=== PATIENT | female | born 1960 | race Caucasian/White ===

== ENCOUNTER 2019-09-17 10:34 | Outpatient (CLI) | payer OTHER, SELFPAY ==
--- NOTE | ~2019-09-17 | MM_ITS ---
EXAMINATION: MM screening jose BI w shayy HISTORY: Screening mammogram TECHNIQUE: Craniocaudal and mediolateral oblique 3-D tomosynthesis images were obtained and synthetic 2-D images were generated. CAD analysis was submitted and interpreted. COMPARISON: No prior mammogram is available for comparison at this institution. BREAST PARENCHYMAL COMPOSITION: There are scattered areas of fibroglandular density. FINDINGS: There are scattered bilateral benign calcifications. There is architectural distortion anteriorly in the mid central to lateral left breast; history of pr ior benign biopsy at this site in August 2015. There is no evidence of suspicious mass, calcification, o r architectural distortion to suggest malignancy in either breast. There has been no suspicious inter martin change. IMPRESSION: 1. Postoperative scarring of right breast, stable. No mammographic evidence of malignancy. 2. Recommend routine screening mammography in one year. BI-RADS Category 2: Benign finding(s). Reviewed, dictated and finalized at location A.
== END 2019-09-17 10:35 | disposition home or self-care (01) ==
LOC: ANHIMG 10:37
PROVIDERS: PCP Family Medicine; Visit Provider Obstetrics & Gynecology
DX: Z12.31 Encounter for screening mammogram for malignant neoplasm of breast (principal)
CPT/HCPCS: 77063; 77067

== ENCOUNTER 2021-02-13 00:45 | Day surgery (SDC) | payer OTHER, SELFPAY ==
[2021-01-30 15:39] VITALS: BMI 29.2
[2021-02-13 08:47] VITALS: BP 128/92; PULSE 90; RESP 16; TEMP 36.6; O2SAT 100; BMI 28.8
[2021-02-13] MEDS: LACTATED RINGERS 1,000 ML 150 ML IV CONT (09:03)
--- NOTE | 2021-02-13 09:09 | P.PNAN_ITS ---
Anes - Initial Pre Proc Eval Procedure: Operation Date: 02/13/21 09:30 Proposed Procedures p Screening Colonoscopy - Immanuel Mota MD Date/Time: 02/13/21 09:09 Surgeon: Immanuel Mota MD Pre Op Diagnosis: family hx of colon ca Patient Data Age: 60 Gender: F Height: 1.6 m Weight: 73.8 kg Last Vital Signs Temp 36.6 C 02/13/21 08:47 Pulse 90 02/13/21 08:47 Resp 16 02/13/21 08:47 BP 128/92 H 02/13/21 08:47 Pulse Ox 100 02/13/21 08:47 Allergies Allergy/AdvReac Type Severity Reaction Status Date / Time Penicillins Allergy Severe Unknown Verified 02/13/21 08:45 Home Medications Medication Instructions Recorded Confirmed Type Lactobacills gasseri-Bifidobac 1 cap PO DAILY 04/28/20 02/13/21 History bifidum,longum 1.5 billion cell capsule latanoprost 0.005 % eye drops 1 drp OPHTHALMIC (EYE) DAILY 04/28/20 02/13/21 History triamterene 37.5 1 cap PO DAILY #90 cap 04/28/20 02/13/21 Rx mg-hydrochlorothiazide 25 mg capsule vitamins A,C,G-xasq-awlmqc 14,320 1 cap PO BID 04/28/20 02/13/21 History unit-226 mg-200 unit capsule metoprolol succinate 50 mg 50 mg PO DAILY #90 tablet 04/29/20 02/13/21 Rx tablet,extended release 24 hr atorvastatin 10 mg PO HS 01/30/21 02/13/21 History Patient hx anesthesia problems: none Family hx anesthesia problems: none Results Review: All pre-operative results and documents have been reviewed as part of the pre-operative evaluation. [facility] Past Medical History Medical History H/O Mohs micrographic surgery for skin cancer High cholesterol HLD (hyperlipidemia) Hypertension Skin cancer Family History Family History Father Heart disease Malignant neoplasm of prostate Mother Hypertension Breast cancer Skin cancer Sibling Carcinoma of colon Diabetes mellitus Social History Social History Smoking packs per day: 0.15 Smoking cigarettes per day: 3.0 Years smoked: 2 Smoking pack-years: 0.30 Smoking status: Former smoker Tobacco type: cigarettes Smoking end date: 04/15/90 Alcohol intake: current Alcohol use details: seldom; socially Substance use: never Substance use type: does not use Living arrangements: with family Gender identity (if verbalized by the patient): Female Spiritual care concerns: No Anes - Eval Final PreProcedure Day of Procedure 02/13/21 09:09 Patient weight: overweight Heart: regular rate and rhythm Lungs: clear to auscultation Airway: Mallampati scale class III Neurological: alert and oriented Last oral intake: >/= 8 hours ASA classification: III Emergent: no Anesthetic plan: proceed Anesthesia type and monitoring: general GIVS and standard monitoring Results Review: All pre-operative results and documents have been reviewed as part of the pre-operative evaluation. Informed Consent: The patient's anesthetic plan and its attendant risks and benefits were discussed with the patient/family/POA. Questions were solicited and answers provided to the satisfaction of the patient/family/POA
--- NOTE | 2021-02-13 09:11 | WPDGICN ---
Assessment and Plan Assessment and plan (1) Family hx of colon cancer: Code(s): Z80.0 - Family history of malignant neoplasm of digestive organs Status: Acute Assessment and Plan: Patient's brother has had colon cancer. Plan therefore is for surveillance colonoscopy in 5 year intervals with this patient. GI Consult Note Consult date/time: 02/13/21 09:11 HPI: Leslie Celaya is a 60 year old female Presents for screening colonoscopy. Family history is significant that her brother had colon cancer. Her last colonoscopy was [address] Immanuel Fuentes. patient states that in the past she was identified as having collagenous colitis . She states her symptoms are well controlled on probiotics. She does report irregular stools otherwise. patient denies any blood in her stools. Her weight is stable. Family history is as stated. Review of Systems Review of Systems: All systems reviewed & are unremarkable except as noted in HPI and below PMFSH Past Medical History Medical History H/O Mohs micrographic surgery for skin cancer High cholesterol HLD (hyperlipidemia) Hypertension Skin cancer Family History Family History Father Heart disease Malignant neoplasm of prostate Mother Hypertension Breast cancer Skin cancer Sibling Carcinoma of colon Diabetes mellitus Social History Social History Smoking packs per day: 0.15 Smoking cigarettes per day: 3.0 Years smoked: 2 Smoking pack-years: 0.30 Smoking status: Former smoker Tobacco type: cigarettes Smoking end date: 04/15/90 Alcohol intake: current Alcohol use details: seldom; socially Substance use: never Substance use type: does not use Living arrangements: with family Gender identity (if verbalized by the patient): Female Spiritual care concerns: No Meds Home Medications and Allergies Home Medications Medication Instructions Recorded Confirmed Type Lactobacills gasseri-Bifidobac 1 cap PO DAILY 04/28/20 02/13/21 History bifidum,longum 1.5 billion cell capsule latanoprost 0.005 % eye drops 1 drp OPHTHALMIC (EYE) DAILY 04/28/20 02/13/21 History triamterene 37.5 1 cap PO DAILY #90 cap 04/28/20 02/13/21 Rx mg-hydrochlorothiazide 25 mg capsule vitamins A,C,Q-tsyq-mmyzxk 14,320 1 cap PO BID 04/28/20 02/13/21 History unit-226 mg-200 unit capsule metoprolol succinate 50 mg 50 mg PO DAILY #90 tablet 04/29/20 02/13/21 Rx tablet,extended release 24 hr atorvastatin 10 mg PO HS 01/30/21 02/13/21 History Allergies Allergy/AdvReac Type Severity Reaction Status Date / Time Penicillins Allergy Severe Unknown Verified 02/13/21 08:45 Vital Signs Vital Signs - 24 hr 02/13/21 08:47 Temperature 97.9 F Pulse Rate 90 Respiratory Rate 16 Blood Pressure 128/92 H Pulse Oximetry 100 Exam Narrative: Physical exam reveals patient be alert. Vital signs stable. HEENT exam is unremarkable. Patient is anicteric. Lungs are clear to auscultation and percussion. Heart is without murmur or extra sounds. Abdominal exam bowel sounds are present soft nontender with no organomegaly. Digital external rectal exam is normal.
[2021-02-13 09:39] VITALS: BP 78/37; PULSE 74; RESP 16; O2SAT 99
[2021-02-13 09:49] VITALS: BP 74/43; PULSE 74; RESP 16; O2SAT 99
[2021-02-13 09:59] VITALS: BP 76/37; PULSE 75; RESP 16; O2SAT 100
== END 2021-02-13 10:01 | disposition home or self-care (01) ==
PROVIDERS: PCP Family Medicine; Visit Provider Internal Medicine Gastroenterology
PROC: 0DJD8ZZ Inspection of Lower Intestinal Tract, Via Natural or Artificial Opening Endoscopic (ICD-10-PCS; CPT 45378; principal; 2021-02-13 09:30)
DX: Z12.11 Encounter for screening for malignant neoplasm of colon (principal); Z80.0 Family history of malignant neoplasm of digestive organs; K64.8 Other hemorrhoids; E78.00 Pure hypercholesterolemia, unspecified; I10 Essential (primary) hypertension; Z87.891 Personal history of nicotine dependence; E78.5 Hyperlipidemia, unspecified
CPT/HCPCS: 45378; J2704; J7120

== ENCOUNTER → 2021-11-29 13:26 | Outpatient (CLI) | payer OTHER, SELFPAY ==
--- NOTE | ~2021-11-29 | MM_ITS ---
EXAMINATION: MM screening jose BI w shayy HISTORY: Screening mammogram TECHNIQUE: Craniocaudal and mediolateral oblique 3-D tomosynthesis images were obtained and synthetic 2-D images were generated. CAD analysis was submitted and interpreted. COMPARISON: 09/2019 bilateral screening mammogram 02/04/2017 and 08/02/2016 diagnostic right mammogram and limited right breast ultrasound examination 12/12/2015 diagnostic right mammogram and limited right breast ultrasound 04/05/2014 bilateral screening mammogram BREAST PARENCHYMAL COMPOSITION: There are scattered areas of fibroglandular density. FINDINGS: Stable architectural distortion secondary to prior right lumpectomy for benign papilloma ac cording to clinical history. Scattered bilateral benign calcifications. There is no evidence of suspicious mass, calcification, or architectural distortion to suggest malignancy in either breast. There has been no suspicious interv al change. IMPRESSION: 1. Stable postoperative scarring of right breast. Benign calcifications. No mammographic evidence of malignancy 2. Recommend routine screening mammography in one year. BI-RADS Category 2: Benign finding(s).. Reviewed, dictated and finalized at location A. IMPRESSION: 1. Stable postoperative scarring of right breast. Benign calcifications. No jose mographic evidence of malignancy 2. Recommend routine screening mammography in one year. BI-RADS Category 2: Benign finding(s)..
== END ==
PROVIDERS: PCP Family Medicine; Visit Provider Family Medicine
DX: Z12.31 Encounter for screening mammogram for malignant neoplasm of breast (principal)
CPT/HCPCS: 77063; 77067

== ENCOUNTER 2022-03-24 18:33 | Emergency (ER) | payer OTHER, SELFPAY ==
[2022-03-24 18:50] VITALS: BP 139/89; PULSE 125; RESP 18; TEMP 38.9; O2SAT 100
--- NOTE | 2022-03-24 19:09 | ED.URI ---
HPI - URI/Sore Throat General Chief Complaint: Upper Respiratory Infection Stated Complaint: cough,rash Time Seen by Provider: 03/24/22 19:09 Source: patient, RN notes reviewed and old records reviewed Mode of arrival: ambulatory Limitations: no limitations History of Present Illness HPI Narrative: 61-year-old female presents to the [facility] complaints of cough and a rash. Patient states she has been sick pretty much the month of February. since this afternoon developed a fever and worsening cough and feeling worse. States also for the last 3 days has developed a rash on the right chest area. Wraps around the ribcage just on the right side patient denies any pain. Related Data Home Medications Medication Instructions Recorded Confirmed Lactobacills gasseri-Bifidobac 1 cap PO DAILY 04/28/20 10/27/21 bifidum,longum 1.5 billion cell capsule ([employer] latanoprost 0.005 % eye drops 1 drp ophthalmic (eye) DAILY 04/28/20 10/27/21 vitamins A,C,W-ruye-dsyvkx 14,320 1 cap PO BID 04/28/20 10/27/21 unit-226 mg-200 unit capsule ([employer]) Allergies Allergy/AdvReac Type Severity Reaction Status Date / Time Penicillins Allergy Severe Unknown Verified 10/27/21 08:56 Review of Systems Review of Systems: All systems reviewed & are unremarkable except as noted in HPI and below Constitutional: Constitutional: Reports no additional constitutional complaints Eyes: Eyes: Reports no additional eye complaints ENT: Reports as per HPI, Reports nasal congestion and Reports sore throat Cardiovascular: Cardiovascular: Reports no additional cardiovascular complaints, Denies chest pain and Denies dyspnea Respiratory: Respiratory: Reports as per HPI, Reports chest congestion, Reports cough and Denies dyspnea Gastrointestinal: Gastrointestinal: Reports no additional gastrointestinal complaints, Denies abdominal pain, Denies nausea and Denies vomiting Musculoskeletal: Musculoskeletal: Reports no additional musculoskeletal complaints Integumentary/Breasts: Skin/Breast: Reports as per HPI and Reports rash Neurologic: Reports system reviewed and no additional complaints, except as documented Psychiatric: Psychiatric: Reports no additional psychiatric complaints Allergic/Immunologic: Allergic/Immunologic: Reports no additional allergic/immunologic complaints PMFSH Past Medical History Medical History H/O Mohs micrographic surgery for skin cancer High cholesterol HLD (hyperlipidemia) Hypertension Skin cancer Family History Family History Father Heart disease Malignant neoplasm of prostate Mother Hypertension Breast cancer Skin cancer Sibling Carcinoma of colon Diabetes mellitus Social History Social History Smoking packs per day: 0.15 Smoking cigarettes per day: 3.0 Years smoked: 2 Smoking pack-years: 0.30 Smoking status: Never smoker Tobacco type: cigarettes Smoking end date: 04/15/90 Alcohol intake: current Alcohol use details: seldom; socially Substance use: never Substance use type: does not use Gender identity (if verbalized by the patient): Female Spiritual care concerns: No Comments At the time of my signature, I reviewed and agree with the nursing past medical, surgical, social, and family history. There is no relevant family history pertinent to the patient complaint. Exam Const: General: cooperative, healthy appearing, comfortable, no acute distress, well developed, alert and well nourished Nutritional Appearance: well nourished Orientation/consciousness: patient oriented x3 Limitations: no limitations HENMT: Head: normal to inspection Ears: hearing grossly normal bilaterally and external ears normal Face/Nose/Sinus: Normal external nose present, Abnormal mucous membranes an
== END 2022-03-24 19:33 | disposition home or self-care (01) ==
PROVIDERS: Emergency Provider Nurse Practitioner; PCP Family Medicine
DX: B02.9 Zoster without complications (principal); J32.9 Chronic sinusitis, unspecified; J40 Bronchitis, not specified as acute or chronic; Z87.891 Personal history of nicotine dependence; E78.00 Pure hypercholesterolemia, unspecified; I10 Essential (primary) hypertension; Z85.828 Personal history of other malignant neoplasm of skin
CPT/HCPCS: 87804; 99213; G0463

== ENCOUNTER 2023-10-18 11:17 | Outpatient (CLI) | payer OTHER, SELFPAY ==
--- NOTE | ~2023-10-18 | MM_ITS ---
EXAMINATION: MM screening jose BI w shayy HISTORY: Screening mammogram, family history of breast cancer in her mother. TECHNIQUE: Craniocaudal and mediolateral oblique 3-D tomosynthesis images were obtained and synthetic 2-D images were generated. CAD analysis was submitted and interpreted. COMPARISON: 11/29/2021, 09/17/2019, 02/04/2017 BREAST PARENCHYMAL COMPOSITION:Not Dense. There are scattered areas of fibroglandular density. FINDINGS: No suspicious mass, calcification, or architectural distortion are identified in either taina ast to suggest malignancy. There has been no suspicious interval change. IMPRESSION: No mammographic evidence of malignancy. Recommend routine screening mammography in one year. BI-RADS Category 1: Negative Reviewed, dictated and finalized at location .
== END 2023-10-18 11:18 ==
PROVIDERS: PCP Family Medicine; Visit Provider Family Medicine
DX: Z12.31 Encounter for screening mammogram for malignant neoplasm of breast (principal)
CPT/HCPCS: 77063; 77067

== ENCOUNTER 2024-11-05 07:40 | Outpatient (CLI) | payer OTHER, SELFPAY ==
--- NOTE | ~2024-11-05 | DEXA_ITS ---
Bone Density Report Name: JESICA MERCADO Age: 64 Sex: Female Ethnicity: White Date of : 1960 Indication: postmenopausal; screening for osteoporosis; height loss; Referring Provider: ILIR RAZA Study: Bone densitometry was performed. Exam Date: November 05, 2024 Accession number: [id number] Bone Density: Region BMD T-score Z-score Classification AP Spine(L1-L4) 0.896 -1.4 0.2 Osteopenia Femoral Neck (Left) 0.619 -2.1 -0.7 Osteopenia Total Hip (Left) 0.660 -2.3 -1.2 Osteopenia Femoral Neck (Right) 0.610 -2.2 -0.8 Osteopenia Total Hip (Right) 0.673 -2.2 -1.1 Osteopenia Total Hip Mean 0.667 -2.3 -1.2 Osteopenia World Health Organization criteria for BMD impression classify patients as: Normal (T-score at or above -1.0), Osteopenia (T-score between -1.0 and -2.5), or Osteoporosis (T-score at or below -2.5). 10-year Fracture Risk(1): Major Osteoporotic Fracture 10% Hip Fracture 1.5% Reported Risk Factors: [place] (), Neck BMD=0.610, BMI=29.2 (1) FRAX(R) Version 3.08. Fracture probability calculated for an untreated patient. Fracture probability may be lower if the patient has received treatment. Clinical Information Provided by Patient: Has used the following medications: Vitamin D Patient maximum height was 63 Menopause Age: 49 No regular weight bearing exercise Does not regularly consume dairy products Drinks caffeinated beverages Onset of menses at age 14 Number of children 1 Impression: The patient has low bone mass, based on the Left Total Hip T-score. The patient has an estimated ten-year risk of hip fracture of 1.5% and an estimated ten-year risk of major fracture of 10%, based on the WHO FRAX algorithm. Discussion: BONE DENSITY IS LOW AT ONE OR MORE SKELETAL SITES. This patient's lowest T-score is low at one or more skeletal sites. It meets the World Health Organization's (WHO) criteria for ?low bone mass? (T-score between -1.0 and -2.5). The patient's 10-year risk of fracture as calculated by FRAX is less than the threshold where pharmacological therapy is recommended by the National Osteoporosis Foundation (NOF). However, all treatment decisions require clinical judgment and consideration of individual patient factors, including patient preferences, comorbidities, previous drug use, risk factors not captured in the FRAX model (e.g., frailty, falls, vitamin D deficiency, increased bone turnover, interval significant decline in bone density) and possible under or overestimation of fracture risk by FRAX. The patient should follow a healthful lifestyle (good nutrition with adequate calcium and vitamin D, and appropriate weight-bearing exercise). Follow-Up: Consider repeating this study in 2 to 3 years to reassess this patient's status, or sooner if there is some new clinical indication. Reported by: DREW on 11/05/2024 8:10:00 AM. Reviewed, dictated and finalized at location A.
== END 2024-11-05 07:41 | disposition home or self-care (01) ==
LOC: MICIMG 07:41
PROVIDERS: PCP Family Medicine; Visit Provider Family Medicine
DX: M85.89 Other specified disorders of bone density and structure, multiple sites (principal); Z78.0 Asymptomatic menopausal state
CPT/HCPCS: 77080

== ENCOUNTER 2024-11-12 21:47 | Emergency (ER) | payer OTHER, SELFPAY ==
--- NOTE | ~2024-11-12 | XR_ITS ---
EXAMINATION: XR chest 1V portable 11/12/2024 22:17 INDICATION: Possible CVA PROCEDURE: AP portable chest COMPARISON: No prior studies for comparison. FINDINGS: The lungs are clear. The cardiomediastinal silhouette is within normal limits. There are no pleural effusions. There is no pneumothorax suspected. IMPRESSION: 1: NO ACUTE CARDIOPULMONARY DISEASE. Reviewed, dictated and finalized at location B.
--- NOTE | ~2024-11-12 | CT_ITS ---
EXAMINATION: CT brain wo con DATE: 11/12/2024 22:01 INDICATION: Vision changes TECHNIQUE: Computed tomography (CT) of the head was performed without intravenous contrast. The dose- length product was 681.00 mGy-cm. Automated exposure control and iterative reconstruction technique w ere employed. COMPARISON: None FINDINGS: Brain parenchymal volume is normal for age. There is mucosal thickening of the right maxill [place] and ethmoid sinuses. No ventriculomegaly or midline shift. Basilar cisterns are patent. No acute hemorrhage, infarction, mass or mass effect. IMPRESSION: 1. No acute intracranial abnormality. Reviewed, dictated and finalized at location B.
[2024-11-12 22:05] VITALS: BP 156/93; PULSE 82; PULSE 83; RESP 12; RESP 16; TEMP 36.8; O2SAT 100; O2SAT 99
[2024-11-12 22:05] LABS: Hematocrit 39.7 % (37.0-47.0); Hemoglobin 13.6 g/dL (12.0-15.0); Immature Granulocyte Percent A 0.1 % (0-0.5); Lymphocytes Absolute Auto 4.02 K/mm3 (0.9-3.2); Mean Corpuscular HGB Conc 34.3 g/dl (32-36); Mean Corpuscular Hemoglobin 31.3 pg (26-34); Mean Corpuscular Volume 91.3 fl (80-100); Nucleated Red Blood Cells Absolute Auto 0.000 K/mm3 (0.0-0.012); Nucleated Red Blood Cells Perc 0.0 % (0.0-0.2); Platelet Count Result 250 k/mm3 (150-375); Red Blood Count 4.35 M/mm3 (4.2-5.4); White Blood Count 8.5 K/mm3 (4.5-10.0)
[2024-11-12 22:09] VITALS: PULSE 78
--- OUTSIDE RECORDS SUMMARY | 2024-11-12 22:09 | XMS_ITS | Encounter Summary ---
Author Organization [facility] Address [address] [place] [address] Care Team Providers Care Cell Tuber Hand Name Role Phone Guerrero Canchola MD Primary Care Provider Encounter Details Date Type Department Care Team (Late st Contact Info) Description 04/20/2022 Lab Requisition [facility] [address] [place] [id number] Ruben Ramirez MD [address] [place] [address] Social History Tobacco Use Types Packs/Day Years Used Date Smoking Tobacco: Former Smokeless Tobacco: Never Alcohol Use Standard Drinks/Week Comments Yes 0 (1 standard drink = 0.6 oz pur e alcohol) Comments Unknown Sex and Gender Information Value Date Recorded Sex Assigned at Not on file 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 Gender Identity Not on file Sexual Orientation Not on file documented as of this encounter Plan of Treatment Not on file documented as of this encounter Procedures Procedure Name Priority Date/Time Associated Diagnosis Comments DERMATOPATHOLOGY Routine 04/18/2022 12:0 0 AM COP[employer] AND PRINT ASSOCIATE documented in this encounter Results * DERMATOPATHOLOGY (04/18/2022 12:00 AM COPY AND PRINT ASSOCIATE) Case Report Dermatopathology Report Case: [id number] Authorizing Provider: Ruben Ramirez MD Collected: 04/18/2022 12:00 AM Ordering Location: [facility] Received: 04/20/2022 06:42 AM Pathologist: Tiffany Seo MD Specimen: Skin, vertex scalp 3 5:21 PM [facility] Final Diagnosis Specimen A. 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 The specimen consists of a shave biopsy measuring 7x5x1 mm. Jar 0. 5:21 PM [facility] Microscopic Description Specimen A. SKIN, vertex scalp: The epidermis shows parakeratosis, full thickness disorderly maturation of keratinocytes, mitoses at different levels, and dyskeratotic cells. 3 5:21 PM [facility] Disclaimer An external and internal positive and negative controls are appropriate for the histochemical, immunohistochemical and immunofluorescence stain(s) in this case (if any), except where stated explicitly. The performance characteristics of the stain(s) cited in this report were developed and its performance characteristic determined by the Dermatopathology Laboratory at [facility], directed by Dr. Luz Man. These tests need not be, and therefore are not, approved by the [place] Food and Drug Administration. The tests are used for clinical purposes. Billing Codes Specimen Charges Stain Charges 93887 1 3 5:21 PM [facility] Embedded Images 3 5:21 PM [facility]OLOG[facility] Pathology/Cytolog y TISSUE SPECIMEN FROM SKIN / Unknown 04/18/2022 04/20/2022 6:42 AM [facility] Ruben Ramirez MD LAB - PATHOLOGY/CYTOLOGY ORD ERABLES Final Result DERMATOPATHOLOGY LABORATORY [facility] - Department of Dermatology [address] [phone] documented in this encounter Visit Diagnoses Not on filedocumented in this encounter Care Teams Cell Tuber Hand Relationship Specialty Start Date End Date Guerrero Canchola MD [address] [place] [id number] PCP - General 08/21/12 documented as of this encounter
--- OUTSIDE RECORDS SUMMARY | 2024-11-12 22:10 | XMS_ITS | Clinical Summary ---
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 Gender Identity Not on file Sexual Orientation Not on file Last Filed Vital Signs Vital Sign Reading Time Taken Comments Blood Pressure 102/72 08/24/2015 9:57 AM CDT Pulse 64 08/24/2015 9:57 AM CDT Temperature 36.7 C (98 F) 08/24/2015 9:57 AM CDT Respiratory Rate - - Oxygen Saturation 99% 08/24/2015 9:57 AM CDT Inhaled Oxygen Concentration - - Weight 84.7 kg (186 lb 12.8 oz) 08/24/2015 9:57 AM CDT Height 158.8 cm (5' 2.5) 08/24/2015 9:57 AM CDT Body Mass Index 33.62 08/24/2015 9:57 AM CDT Plan of Treatment Health Maintenance Due Date Last Done Comments Breast Cancer Screening-Mammogram 1960 Cervical Cancer Screening 1960 Colon Cancer Screening-Colonoscopy 1960 Depression Screening 1960 Hepatitis C Screening 1960 DTaP/Tdap/Td Vaccine (1 - Tdap) 1973 Hepatitis B Screening 1980 Regular Well Visit/Exam 18-64 1980 Zoster Vaccine (1 of 2) 2012 Covid-19 Vaccine (4 - season) 2023 03/23/2021, 06/25/2020, 05/28/2020 Influenza Vaccine (#1) 2024 , 02/15/2020, 05/06/2018, Additional history exists Pneumococcal vaccine <65 Aged Out No longer eligible based on patient's age to complete this topic Insurance [employer] Care Teams Fourth Mate Relationship Specialty Start Date End Date Alma Villarreal MD PCP - General Family Medicine 05/23/21
--- OUTSIDE RECORDS SUMMARY | 2024-11-12 22:10 | XMS_ITS | Clinical Summary ---
Author Organization [facility] Address [address] [place] [address] Care Team Providers Care Sales Account Representative Name Role Phone Guerrero Canchola MD Primary Care Provider [phone] Source Comments [facility],non-owned Affiliates and Associated Physician Practices is amultiple site organization consisting of ambulatory clinics and hospital sitesin [place], [place], [place] and [place]. This disclosure is being madepursuant to the Care Everywhere program and may not contain all information available regarding this patient. Last updated 18.[facility] [place] Allergies Active Allergy Reactions Criticality Noted Date Comments Penicillin G Rash Medium 09/09/2013 Family History Medical History Relation Name Comments Diabetes Brother Heart Failure Father CABG Cancer Mother skin Diabetes Mother Hypertension Mother Relation Name Status Comments Brother Father Mother Social History Tobacco Use Types Packs/Day Years Used Date Smoking Tobacco: Former Smokeless Tobacco: Never Alcohol Use Standard Drinks/Week Comments Yes 0 (1 standard drink = 0.6 oz pur e alcohol) Comments Unknown Sex and Gender Information Value Date Recorded Sex Assigned at Not on file Legal 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 Gender Identity Not on file Sexual Orientation Not on file Last Filed Vital Signs Vital Sign Reading Time Taken Comments Blood Pressure 142/78 01/13/2014 9:12 AM CDT Pulse 78 01/13/2014 7:24 AM CDT Temperature - - Respiratory Rate - - Oxygen Saturation 96% 12/02/2013 7:25 AM CDT Inhaled Oxygen Concentration - - Weight 85.3 kg (188 lb) 01/13/2014 7:24 AM CDT Height 160 cm (5' 3) 01/13/2014 7:24 AM CDT Body Mass Index 33.3 01/13/2014 7:24 AM CDT Plan of Treatment Health Maintenance Due Date Last Done Comments COLOGUARD (AGES 45-75) - COL ON CA SCREENING 1962 COLON MONITORING 1962 COLONOSCOPY - COLON CA SCREENING 1962 CT COLONOGRAPHY - COLON CA SCREENING 1962 Colorectal Cancer Screening 1962 FIT - COLON CA SCREENING 1962 FLEX SIG - COLON CA SCREENING 1962 LIPID TESTING 1962 MAMMOGRAM 1962 HIV SCREENING 1977 HEPATITIS C SCREENING 08/03/1980 DTAP/TDAP/TD VACCINES (1 - Tdap) 1981 PAP SMEAR 08/09/1983 PNEUMOCOCCAL VACCINE 50+ (1 of 1 - PCV) 2012 ZOSTER VACCINE (1 of 2) 2012 COVID-19 VACCINE (1 - 2023-2 5 season) 2023 DEPRESSION SCREENING 04/15/2024 INFLUENZA VACCINE (#1) 2024 Respiratory Syncytial Virus (RSV) Vaccine Pt: or over 60 yrs (1 - 1-dose 75+ series) 2037 HEPATITIS B VACCINE Aged Out No longe r eligible based on patient's age to complete this topic HIB VACCINE Aged Out No longer eligi ble based on patient's age to complete this topic HPV VACCINE Aged Out No longer eligi ble based on patient's age to complete this topic MENINGOCOCCAL (Group B) VACC INE SHARED DECISION-MAKING Aged Out No longer eligibl e based on patient's age to complete this topic MENINGOCOCCAL GROUPS A/C/Y/W VACCINE Aged Out No longer eligible b ased on patient's age to complete this topic Insurance [facility] Care Teams Sales Account Representative Relationship Specialty Start Date End Date Guerrero Canchola MD [address] [place] [phone] PCP - General 08/21/12
--- OUTSIDE RECORDS SUMMARY | 2024-11-12 22:10 | XMS_ITS | Clinical Summary ---
Author Organization [facility] Care Team Providers Care Integrated Logistics Operations Manager Name Role Phone Unavailable Primary Care Provider Unavailabl e Social History Tobacco Use Types Packs/Day Years Used Date Smoking Tobacco: Never Assessed Comments Unknown Sex and Gender Information Value Date Recorded Sex Assigned at Not on file Legal Sex Female 9:08 PM CDT Gender Identity Not on file Sexual Orientation Not on file Plan of Treatment Health Maintenance Due Date Last Done Comments Hepatitis C Virus (HCV) Screening 1962 TdaP Immunization 1962 Pap Smear 08/09/1983 Cervical Cancer Screening (CCS) 1992 HPV/Cotest 1992 Cologuard 08/09/2007 Colonoscopy 08/09/2007 Colorectal Cancer Screening 08/09/2007 Immunochemical Fecal Occult Blood 08/09/2007 Pneumococcal Immunization (5 0+ years) (1 of 1 - PCV) 2012 Zoster Immunization (1 of 2) 2012 SARS-COV-2 Immunization ( - season) 2023 03/23/2021, 06/25/2020, 05/28/2020 Influenza Immunization (#1) 12/14/202405/2019, 05/06/2018, 03/05/2017 Respiratory Syncytial Virus (RSV) Immunization (Adult) (1 - 1-dose 75+ series) 2037 Hepatitis B Immunization Aged Out No longer eligible based on patient's age to complete this topic Human Papillomavirus (HPV) Immunization Aged Out No longer eligible b ased on patient's age to complete this topic Meningococcal Immunization (ACWY) Aged Out No longer eligible b ased on patient's age to complete this topic Rotavirus Immunization Aged Out No lo nger eligible based on patient's age to complete this topic
--- OUTSIDE RECORDS SUMMARY | 2024-11-12 22:10 | XMS_ITS | Encounter Summary ---
Author Organization [facility] Address [address] [place] [address] Care Team Providers Care Oncology Transplant Network Manager Name Role Phone Guerrero Canchola MD Primary Care Provider Encounter Details Date Type Department Care Team (Late st Contact Info) Description 07/26/2022 Lab Requisition [facility] Care DermPath Lab [address] [place] [phone] Ruben Ramirez MD [address] [address] Social History Tobacco Use Types Packs/Day Years Used Date Smoking Tobacco: Former Smokeless Tobacco: Never Alcohol Use Standard Drinks/Week Comments Yes 0 (1 standard drink = 0.6 oz pur e alcohol) Comments Unknown Sex and Gender Information Value Date Recorded Sex Assigned at Not on file 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 Gender Identity Not on file Sexual Orientation Not on file documented as of this encounter Plan of Treatment Not on file documented as of this encounter Procedures Procedure Name Priority Date/Time Associated Diagnosis Comments DERMATOPATHOLOGY Routine 07/25/2022 12:0 0 AM CDT documented in this encounter Results * DERMATOPATHOLOGY (07/25/2022 12:00 AM CDT) Case Report Dermatopathology Report Case: [id number] Authorizing Provider: Ruben Ramirez MD Collected: 07/25/2022 12:00 AM Ordering Location: [facility] Care DermPath Lab Received: 07/26/2022 12:02 PM Pathologist: Kaylah Newberry MD Specimen: Skin, right vertex scalp 12:22 PM CDT DERMATOPATHOLOGY LABORATORY Final Diagnosis Specimen A. 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 The specimen consists of a shave removal measuring 6x6x1 mm. Jar 0. 12:22 PM CDT DERMATOPATHOLOGY LABORATORY Microscopic Description Specimen A. SKIN, right vertex scalp: The epidermis shows parakeratosis, full thickness disorderly maturation of keratinocytes, and dyskeratotic cells. There is adjacent epidermal hyperplasia with disorderly maturation of keratinocytes with nuclear pleomorphism confined to the lower half of the epidermis. This lesion is present at the margin of the specimen. 12:22 PM CDT DERMATOPATHOLOGY LABORATORY Disclaimer An external and internal positive and negative controls are appropriate for the histochemical, immunohistochemical and immunofluorescence stain(s) in this case (if any), except where stated explicitly. The performance characteristics of the stain(s) cited in this report were developed and its performance characteristic determined by the Dermatopathology Laboratory at [facility], directed by Dr. Luz Man. These tests need not be, and therefore are not, approved by the [place] Food and Drug Administration. The tests are used for clinical purposes. Billing Codes Specimen Charges Stain Charges 10755 1 12:22 PM CDT DERMATOPATHOLOGY LABORATORY Embedded Images 12:22 PM CDT DERMATOPATHOLOGY LABORATORY Pathology/Cytolog y TISSUE SPECIMEN FROM SKIN / Unknown 07/25/2022 07/26/2022 12:02 PM CDT Ruben Ramirez MD LAB - PATHOLOGY/CYTOLOGY ORD ERABLES Final Result DERMATOPATHOLOGY LABORATORY [facility] - Department of Dermatology [facility] Specialized Medicine [address] [place] [address], [address] [phone] documented in this encounter Visit Diagnoses Not on filedocumented in this encounter Care Teams Oncology Transplant Network Manager Relationship Specialty Start Date End Date Guerrero Canchola MD [address] [place] [id number] PCP - General 08/21/12 documented as of this encounter
--- OUTSIDE RECORDS SUMMARY | 2024-11-12 22:10 | XMS_ITS | Referral Summary ---
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
--- OUTSIDE RECORDS SUMMARY | 2024-11-12 22:10 | XMS_ITS | Encounter Summary ---
Author Organization [facility] Address [address] [place] [address] Care Team Providers Care Flight Radio Operator Name Role Phone Guerrero Canchola MD Primary Care Provider [phone] Encounter Details Date Type Department Care Team (Late st Contact Info) Description 10/25/2017 Lab Requisition [facility] Care DermPath Lab [facility] [place] [phone] Ruben Ramirez MD [address] [place] [address] Social History Tobacco Use Types Packs/Day Years Used Date Smoking Tobacco: Former Smokeless Tobacco: Never Alcohol Use Standard Drinks/Week Comments Yes 0 (1 standard drink = 0.6 oz pur e alcohol) Comments Unknown Sex and Gender Information Value Date Recorded Sex Assigned at Not on file 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 Gender Identity Not on file Sexual Orientation Not on file documented as of this encounter Plan of Treatment Not on file documented as of this encounter Procedures Procedure Name Priority Date/Time Associated Diagnosis Comments DERMATOPATHOLOGY Routine 10/24/2017 12:0 0 AM CDT documented in this encounter Results * DERMATOPATHOLOGY (10/24/2017 12:00 AM CDT) Case Report Dermatopathology Report Case: [id number] Authorizing Provider: Ruben Ramirez MD Collected: 10/24/2017 12:00 AM Pathologist: Terri Camacho MD Received: 10/25/2017 12:57 PM Specimens: A) - Skin, right parietal scalp B) - Skin, left of midline superior scalp 12:28 PM T DERMATOPATHOLOGY LABORATORY Final Diagnosis Specimen A. SKIN, right parietal scalp: HYPERPLASTIC (HYPERTROPHIC) ACTINIC KERATOSIS (L57.0) Specimen B. SKIN, left of midline superior scalp: PIGMENTED SEBORRHEIC KERATOSIS (L82.1) 12:28 PM [facility] DERMATOPATHOLOGY LABORATORY at 1228 CDT Clinical History A: R/O SCC. B: R/O ISK, SK, pigmented BCC. 12:28 PM [facility] DERMATOPATHOLOGY LABORATORY Gross Description Specimen A: Received is one formalin filled container labeled with the patient's name and designated right parietal scalp. The specimen consists of a shave biopsy measuring [id number]. Jar 0. Specimen B: Received is one formalin filled container labeled with the patient's name and designated left of midline superior scalp. The specimen consists of a shave biopsy measuring [id number]. Jar 0. 12:28 PM [facility] DERMATOPATHOLOGY LABORATORY Microscopic Description Specimen A. SKIN, right parietal scalp: There is hyperkeratosis alternating with parakeratosis. There is epidermal hyperplasia with disorderly maturation of keratinocytes with nuclear pleomorphism confined to the lower half of the epidermis. Specimen B. SKIN, left of midline superior scalp: Sections show an acanthotic lesion composed of relatively uniform keratinocytes. There is hyperkeratosis and pseudo horn cysts. Pigment is present in the keratinocytes composing this tumor. 12:28 PM [facility] DERMATOPATHOLOGY LABORATORY Disclaimer An external and internal positive and negative controls are appropriate for the histochemical, immunohistochemical and immunofluorescence stain(s) in this case (if any), except where stated explicitly. The performance characteristics of the stain(s) cited in this report were developed and its performance characteristic determined by the Dermatopathology Laboratory at [facility]. These tests need not be, and therefore are not, approved by the [place] Food and Drug Administration. The tests are used for clinical purposes. Billing Codes Specimen Charges Stain Charges 79387 45761 1 1 12:28 PM [facility] DERMATOPATHOLOGY LABORATORY Embedded Images 07/16/201 8 12:28 PM CDT DERMATOPATHOLOGY LABORATORY Pathology/Cytology TISSUE SPECIMEN FROM SKIN / Unknown 10/24/2017 10/25/2017 12:57 PM CDT Miscellaneous samples (specimen) TISSUE SPECIMEN FROM SKIN / Unknown 10/24/2017 10/25/2017 12:57 PM CDT Ruben Ramirez MD LAB - PATHOLOGY/CYTOLOGY ORD ERABLES Final Result DERMATOPATHOLOGY LABORATORY [facility] - Department of Dermatology [address] [place] [address], 5th Floor Lab [address] [phone] documented in this encounter Visit Diagnoses Not on filedocumented in this encounter Care Teams Flight Radio Operator Relationship Specialty Start Date End Date Guerrero Canchola MD [address] [place] [address] PCP - General 08/21/12 documented as of this encounter
--- NOTE | 2024-11-12 22:11 | ED_ITS ---
HPI - Neuro Symptoms/Deficit General Chief Complaint: Neuro Symptoms/Deficit Stated Complaint: neuro symptoms, visual changes Time Seen by Provider: 11/12/24 21:56 History of Present Illness HPI Narrative: Patient with history of hypertension, cataract surgery, presents here with 1-2 hours of sudden vision loss, states it initially felt like a fog and then turned into a thick black caterpillar across her left eye. Has never had this before. No other neuro symptoms. Related Data Home Medications ?Medication ?Instructions ?Recorded ?Confirmed ?Last Taken ?Type Lactobacills gasseri-Bifidobac 1 cap PO DAILY 04/28/20 08/03/24 02/12/21 History bifidum,longum 1.5 billion cell capsule (Cityvox) latanoprost 0.005 % eye drops 1 drp ophthalmic (eye) DAILY 04/28/20 08/03/24 02/12/21 History vitamins A,C,G-lkzd-drukhq 4,296 1 cap PO BID 04/28/20 08/03/24 02/12/21 History mcg-226 mg-90 mg capsule (PreserVision AREDS) Allergies Allergy/AdvReac Type Severity Reaction Status Date / Time Penicillins Allergy Severe Unknown Verified 08/03/24 10:29 Review of Systems 2 Review of Systems: All systems reviewed & are unremarkable except as noted in HPI and below PMFSH Past Medical History Medical History Hx of herpes zoster virus HLD (hyperlipidemia) H/O Mohs micrographic surgery for skin cancer Skin cancer High cholesterol Hypertension Family History Family History Father Heart disease Malignant neoplasm of prostate Mother Hypertension Breast cancer Skin cancer Sibling Carcinoma of colon Diabetes mellitus Social History Social History Smoking packs per day: 0.15 Smoking cigarettes per day: 3.0 Years smoked: 2 Smoking pack-years: 0.30 Smoking status: Former smoker Tobacco type: cigarettes Smoking end date: 04/15/90 Alcohol intake: current Alcohol use details: seldom; socially Substance use: never Substance use type: does not use Lack of Transportation: No Lack of Food: Never True Current Housing: I Have Housing Concerned About Future Housing: No Difficulty Paying Gas/Electric Bills: No Difficulty Paying for Meds: No Currently Unemployed: No Education: Bachelor's Degree Difficulty w/ Childcare or Family Care: No Living arrangements: with family Occupation/Education: occupation Gender identity (if verbalized by the patient): Female Spiritual care concerns: No Agree to blood products: Yes Exam 2 Narrative: EXAMINATION OF ORGAN SYSTEMS/BODY AREAS: Constitutional: Vital signs per nursing GENERAL:[No acute distress, non-toxic appearing.] HEAD: Normal with no signs of head trauma. EYES: EOMI, conjunctiva normal, loss of area visual L eye ENT: Hearing grossly intact LUNGS: Nonlabored breathing. HEART: [Regular rate and rhythm] ABD: [Soft], [nontender to palpation] EXT: Normal range of motion SKIN: [No rashes or lesions.] NEURO: [Alert and oriented x 3. No gross focal sensory or strength deficits.] PSYCH: Normal affect Course Vital Signs Vital signs: Vital Signs Pulse Rate 82 11/12/24 22:05 Respiratory Rate 16 11/12/24 22:05 Blood Pressure 156/93 H 11/12/24 22:05 Pulse Oximetry 100 11/12/24 22:05 Pulse Rate 78 11/12/24 22:09 Respiratory Rate 12 11/12/24 22:05 Blood Pressure 156/93 H 11/12/24 22:05 Pulse Oximetry 99 11/12/24 22:05 MDM - Neuro Symptoms/Deficit MDM Narrative Medical decision making narrative: Patient presents here with sudden onset of visual loss left eye; based on her description, I am highly concerned for possible vitreous hemorrhage versus detachment, discussed with [facility] Dr. Derek elliotto recs transfer, Dr Wells [facility] accepts ER to ER at [facility]. Patient agreeable to plan Lab Data 11/12/24 22:00 11/12/24 22:00 Labs: Lab Results 11/12/24 11/12/24 Range/Units 21:50 22:00 WBC 8.5 (4.5-10.0) K/mm3 RBC 4.35 (4.2-5.4) M/mm3 Hgb 13.6 (12.0-15.0) g/dL Hct 39.7 (37.0-47.0) % MCV 91.3 (80-100) fl MCH 31.3 (26-34) pg MCHC 34.3 (32-36) g/dl RDW 11.9 (11.5-14.5) % Plt Count 250 (150-375) k/mm3 MPV 9.9 (7.4-10.4) fl Immature Gran % (Auto) 0.1 (0-0.5) % Neut % (Auto) 41.6 L (45.5-73.1) % Lymph % (Auto) 47.3 H (18.3-44.2) % Troup % (Auto) 7.9 (2.6-8.5) % Eos % (Auto) 2.6 (0-4.4) % Baso % (Auto) 0.5 (0.2-1.2) % Lymph # (Auto) 4.02 H (0.9-3.2) K/mm3 Troup # (Auto) 0.7 H (0.1-0.6) K/mm3 Eos # (Auto) 0.2 (0-0.3) K/mm3 Baso # (Auto) 0.0 (0.0-0.1) K/mm3 Abs Immat Gran (auto) 0.01 (0.00-0.031) K/mm3 Absolute Neuts (auto) 3.5 (1.3-6.7) K/mm3 Absolute Nucleated RBC 0.000 (0.0-0.012) K/mm3 Nucleated RBC % 0.0 (0.0-0.2) % PT Pending INR Pending APTT Pending Sodium Pending Potassium Pending Chloride Pending Carbon Dioxide Pending Anion Gap Pending BUN Pending Creatinine Pending Estim Creat Clear Calc Pending Estimated GFR Pending Glucose Pending POC Capillary Glucose 159 H (65-105) mg/dl Calcium Pending Total Bilirubin Pending AST Pending ALT Pending Alkaline Phosphatase Pending Troponin I Pending Total Protein Pending Albumin Pending Critical Care Time Critical Care Time Critical Care Time: Yes Total Critical Care Time: 31 Discharge Plan Discharge Clinical Impression: Loss of vision Patient Disposition: Acute Care Hospital Condition: Serious Patient Language: Somali Prescriptions: No Action buspirone 5 mg tablet 5 mg PO TID PRN (Reason: anxiety) Qty: 90 0RF latanoprost 0.005 % drops 1 drp ophthalmic (eye) DAILY PreserVision AREDS 14,320-226-200 chgn-ja-tilq capsule 1 cap PO BID Cityvox 1.5 billion cell capsule 1 cap PO DAILY fluticasone propionate [24 Hour Allergy Relief] 50 mcg/actuation spray,suspension 1 spray intranasal DAILY Qty: 16 3RF Rx Instructions: administer into each nostril metoprolol succinate 50 mg tablet extended release 24 hr 50 mg PO DAILY Qty: 90 4RF triamterene-hydrochlorothiazid 37.5-25 mg capsule 1 cap PO DAILY Qty: 90 4RF atorvastatin 10 mg tablet See Rx Instructions .ROUTE .COMPLEX Qty: 90 3RF Dose Instruction: TAKE 1 TABLET DAILY Rx Instructions: TAKE 1 TABLET DAILY Follow-up/Referrals: Alma Villarreal MD [Primary Care Provider] -
[2024-11-12 22:17] LABS: INR 0.9; Prothrombin Time 12.3 Seconds (11.1-14.7)
[2024-11-12 22:18] LABS: Partial Thromboplastin Time 27.5 Seconds (22.3-36.8)
[2024-11-12 22:22] LABS: Alanine Aminotransferase 21 U/L (6-35); Albumin Level 4.4 g/dL (3.5-5.1); Alkaline Phosphatase 93 U/L (38-126); Anion Gap 6 mmol/L (4-12); Aspartate Amino Transferase 34 U/L (14-36); Bilirubin,Total 0.6 mg/dL (0.2-1.3); Blood Urea Nitrogen 15 mg/dL (7-17); Calcium 9.2 mg/dL (8.4-10.2); Carbon Dioxide 28 mmol/L (22-30); Chloride 101 mmol/L (98-107); Estimated Glomerular Filt Rate > 60; Glucose 131 mg/dL (65-110); Potassium 3.3 mmol/L (3.4-5.0); Sodium 135 mmol/L (137-145); Total Protein 7.2 g/dL (6.3-8.2)
[2024-11-12 22:32] LABS: Troponin I < 0.012 ng/mL (0.000-0.034)
--- NOTE | 2024-11-12 22:53 | PC.NURSE ---
report given to Timmy ZAMORA at [facility]
[2024-11-12 23:00] VITALS: BP 156/93; PULSE 82; RESP 16; TEMP 36.8; O2SAT 100
== END 2024-11-12 23:02 | disposition short-term general hospital (02) ==
PROVIDERS: Emergency Provider Emergency Medicine; PCP Family Medicine
DX: H53.132 Sudden visual loss, left eye (principal); I10 Essential (primary) hypertension; E78.00 Pure hypercholesterolemia, unspecified; Z85.828 Personal history of other malignant neoplasm of skin; Z87.891 Personal history of nicotine dependence; Z79.899 Other long term (current) drug therapy; Z98.49 Cataract extraction status, unspecified eye
CPT/HCPCS: 36415; 70450; 71045; 80053; 82948; 84484; 85025; 85610; 85730; 99284

== ENCOUNTER 2025-03-03 15:00 | Outpatient (CLI) | payer OTHER, SELFPAY ==
--- NOTE | ~2025-03-03 | MM_ITS ---
EXAMINATION: MM screening jose BI w shayy HISTORY: Screening TECHNIQUE: Craniocaudal and mediolateral oblique 3-D tomosynthesis images were obtained and synthetic 2-D images were generated. CAD analysis was submitted and interpreted. COMPARISON: Comparison to multiple prior studies sequentially, with oldest reviewed study dated 09/17/2019. BREAST PARENCHYMAL COMPOSITION: Dense: The breasts are heterogeneously dense, which may obscure small masses. FINDINGS: There is no evidence of suspicious mass, calcification, or architectural distortion to suggest malignancy in either breast. Scattered benign-appearing calcifications are present. Postsurgical changes in the right breast are unchanged. IMPRESSION: 1. No mammographic evidence of malignancy. 2. Recommend routine screening mammography in one year. BI-RADS Category 2: Benign finding(s). Reviewed, dictated and finalized at location B. [employer]
--- OUTSIDE RECORDS SUMMARY | 2025-03-03 23:10 | XMS_ITS | Encounter Summary ---
Author Organization [facility] Health Address [address] [facility] [place] [address] Care Team Providers Care Laborer Landscape Name Role Phone Guerrero Canchola MD Primary Care Provider Alma Villarreal MD Primary Care Provider [phone] Encounter Details Date Type Department Care Team (Late Contact Info) Description 04/20/2022 Lab Requisition [facility] [address] [place] [phone] Ruben Ramirez MD [address] [place] [address] Social History Tobacco Use Types Packs/Day Years Used Date Smoking Tobacco: Former Smokeless Tobacco: Never Alcohol Use Standard Drinks/Week Comments Yes 0 (1 standard drink = 0.6 oz pur e alcohol) Comments Unknown Sex and Gender Information Value Date Recorded Sex Assigned at Not on file Legal Sex Female 6:15 PM PULLMAN CAR 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 Gender Identity Not on file Sexual Orientation Not on file documented as of this encounter Plan of Treatment Upcoming Encounters Date Type Department Care Team (Late Contact Info) Description 03/17/2025 11:00 AM PULLMAN CAR REPAIRER Office Visit [facility] - Ophthalmology [address] [place] [phone] Huong Duran MD [address] [place] [address] [place] [phone] 06/21/2025 8:45 AM CDT Office Visit [facility]hthalmology [address] [place] [phone] Huong Duran MD [address] [place] [address] [place] [phone] documented as of this encounter Procedures Procedure Name Priority Date/Time Associated Diagnosis Comments DERMATOPATHOLOGY Routine 04/18/2022 12:0 0 AM PULLMAN CAR REPAIRER documented in this encounter Results * DERMATOPATHOLOGY (04/18/2022 12:00 AM PULLMAN CAR REPAIRER) Case Report Dermatopathology Report Case: [id number] Authorizing Provider: Ruben Ramirez MD Collected: 04/18/2022 12:00 AM Ordering Location: [facility] Lab Received: 04/20/2022 06:42 AM Pathologist: Tiffany Seo MD Specimen: Skin, vertex scalp 5:21 PM [facility] DERMATOPATHOLOGY [facility]ORATORY Final Diagnosis Specimen A. 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 The specimen consists of a shave biopsy measuring 7x5x1 mm. Jar 0. 5:21 PM [facility] DERMATOPATHOLOGY LABORATORY Microscopic Description Specimen A. SKIN, vertex scalp: The epidermis shows parakeratosis, full thickness disorderly maturation of keratinocytes, mitoses at different levels, and dyskeratotic cells. 5:21 PM [facility] DERMATOPATHOLOGY [facility]ORATORY Disclaimer An external and internal positive and negative controls are appropriate for the histochemical, immunohistochemical and immunofluorescence stain(s) in this case (if any), except where stated explicitly. The performance characteristics of the stain(s) cited in this report were developed and its performance characteristic determined by the Dermatopathology Laboratory at [facility], directed by Dr. Luz Man. These tests need not be, and therefore are not, approved by the [place] Food and Drug Administration. The tests are used for clinical purposes. Billing Codes Specimen Charges Stain Charges 28432 1 3 5:21 PM PULLMAN CAR REPAIRER DERMATOPATHOLOGY LABORATORY Embedded Images 3 5:21 PM PULLMAN CAR REPAIRER DERMATOPATHOLOGY LABORATORY Pathology/Cytolog y TISSUE SPECIMEN FROM SKIN / Unknown 04/18/2022 04/20/2022 6:42 AM PULLMAN CAR REPAIRER Ruben Ramirez MD LAB - PATHOLOGY/CYTOLOGY ORD ERABLES Final Result DERMATOPATHOLOGY LABORATORY [facility] - Department of Dermatology [address], [address] [phone] documented in this encounter Visit Diagnoses Not on filedocumented in this encounter Care Teams Laborer Landscape Relationship Specialty Start Date End Date Guerrero Canchola MD [address] [place] [phone] PCP - General 08/21/12 11/12/24 Alma Villarreal MD [address] [place] [address] PCP - General Family Medicine 11/13/24 documented as of this encounter
--- OUTSIDE RECORDS SUMMARY | 2025-03-03 23:10 | XMS_ITS | Clinical Summary ---
Author Organization [facility] Care Team Providers Care Feed Research Technician Name Role Phone Unavailable Primary Care Provider [...] 2012 Zoster Immunization (1 of 2) 2012 Influenza Immunization (#1) 2024 11/0 05/2019, 05/06/2018, 03/05/2017 SARS-COV-2 Immunization ( season) 2024 03/23/2021, 06/25/2020, 05/28/2020 Respiratory Syncytial Virus (RSV) Immunization (Adult) (1 [...]
--- OUTSIDE RECORDS SUMMARY | 2025-03-03 23:10 | XMS_ITS | Clinical Summary ---
Author Organization [facility] Address [address] [facility] [place] [address] Care Team Providers Care Instructor Bus Trolley And Taxi Name Role Phone Alma Villarreal MD Primary Care Provider [phone] Source Comments [facility],non-owned Affiliates and Associated Physician Practices is amultiple site organization consisting of ambulatory clinics and hospital sitesin [place], [place], [place] and [place]. This disclosure is being madepursuant to the Care Everywhere program and may not contain all information available regarding this patient. Last updated 18.[facility] Allergies Active Allergy Reactions Criticality Noted Date Comments Penicillin G Rash Medium 09/09/2013 Medications * Be aware that medications may not be up to date on this document. Alwaysverify current medications with the patient. triamterene-hyd roCHLOROthiazid e (Dyazide) 37.5-25 MG capsule 11/13/2024 Active metoprolol succinate XL 24hr (Toprol XL) 50 MG tablet 11/13/2024 Active latanoprost (Xalatan) 0.005 % ophthalmic solution at bedtime 11/13/2024 Active atorvastatin (Lipitor) 10 MG tablet 11/13/2024 Active multivitamin daily tablet Take 1 (one) tablet by mouth daily with food Active vitamin D3 (Cholecalcifero l) 10 MCG (400 UNIT) tablet Take 1 (one) tablet by mouth at bedtime Active Active Problems Problem Noted Date Diagnosed Date Hypertension 12/20/2024 HLD (hyperlipidemia) 12/20/2024 Family hx of colon cancer 12/20/2024 Encounters Date Type Department Care Team Description 02/12/2025 12:50 PM CDT Clinical Support [facility] [address] [place] [phone] Huong Duran MD Vitreous hemorrhage of left eye (HCC) (Primary Dx) 02/12/2025 11:15 AM CDT Office Visit [facility] - Ophthalmology [address] [place] [phone] Vitreous hemorrhage of left eye (HCC) (Primary Dx); History of repair of retinal tear by laser photocoagulation [Z98.890]; Pseudophakia of both eyes 02/12/2025 Travel 02/11/2025 6:50 PM CDT Clinical Support [facility] - Ophthalmology [address] [place] [phone] Hill Leon MD Acute hemorrhagic posterior vitreous detachment (HCC) (Primary Dx) 02/11/2025 6:45 PM CDT Clinical Support [facility] - Ophthalmology [address] [place] [phone] Hill Leon MD Acute hemorrhagic posterior vitreous detachment (HCC) (Primary Dx) 12/16/2024 8:45 AM CDT Office Visit [facility] - Ophthalmology [address] [place] [phone] Huong Duran MD History of repair of retinal tear by laser photocoagulation (Primary Dx); Combined form of senile cataract of both eyes; Acute hemorrhagic posterior vitreous detachment 12/16/2024 8:35 AM CDT Clinical Support [facility] - Ophthalmology [address] [place] [phone] Huong Duran MD Acute hemorrhagic posterior vitreous detachment (Primary Dx); Horseshoe tear of retina without detachment, left eye 12/16/2024 Travel from Last 3 Months Family History Medical History Relation Name Comments Diabetes Brother Heart Failure Father CABG Cancer Mother skin Diabetes Mother Hypertension Mother Relation Name Status Comments Brother Father Mother Social History Tobacco Use Types Packs/Day Years Used Date Smoking Tobacco: Former Smokeless Tobacco: Never Alcohol Use Standard Drinks/Week Comments Yes 0 (1 standard drink = 0.6 oz pur e alcohol) AUDIT-C Answer Date Recorded Q1: How often do you have a drink containing alcohol? Never 11/17/2024 Q2: How many drinks containi ng alcohol do you have on a typical day when you are drinking? Patient does not drink Q3: How often do you have si x or more drinks on one occasion? 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 Gender Identity Not on file Sexual Orientation Not on file Last Filed Vital Signs Vital Sign Reading Time Taken Comments Blood Pressure 110/71 11/17/2024 11:13 AM CDT Pulse 72 11/17/2024 11:03 AM CDT Temperature 36.3 C (97.3 F) 11/17/2024 11:03 AM CDT Respiratory Rate 21 11/17/2024 11:03 AM CDT Oxygen Saturation 97% 11/17/2024 11:03 AM CDT Inhaled Oxygen Concentration - - Weight 71.9 kg (158 lb 9.6 oz) 11/17/2024 8:14 A M CDT Height 157.5 cm (5' 2) 11/16/2024 3:22 PM CDT Body Mass Index 29.01 11/16/2024 3:22 PM CDT Plan of Treatment Upcoming Encounters Date Type Department Care Team (Late st Contact Info) Description 03/17/2025 11:00 AM CAREER TECHNOLOGY TEACHER [facility] [address] [place] [phone] Huong Duran MD [address] [place] [address] [place] [phone] 06/21/2025 8:45 AM CDT Office Visit [facility] [address] [place] [phone] Huong Duran MD [address] [place] [address] [place] [phone] Health Maintenance Due Date Last Done Comments COLOGUARD (AGES 45-75) - COLON CA SCREENING 1962 COLON MONITORING 1962 COLONOSCOPY - COLON CA SCREENING 1962 CT COLONOGRAPHY - COLON CA SCREENING 1962 Colorectal Cancer Screening 1962 FIT - COLON CA SCREENING 1962 FLEX SIG - COLON CA SCREENING 1962 MAMMOGRAM 1962 HIV SCREENING 1977 HEPATITIS C SCREENING 08/03/1980 DTAP/TDAP/TD VACCINES (1 - Tdap) 1981 Cervical Cancer Screening 08/09/1983 PAP SMEAR 08/09/1983 PAP with HPV 1992 PNEUMOCOCCAL VACCINE 50+ (1 of 1 - PCV) 2012 ZOSTER VACCINE (1 of 2) 2012 DEPRESSION SCREENING 04/15/2024 SCREENING FOR DIABETES 11/13/2024 COVID-19 VACCINE ( - season) 2024 03/23/2021, 06/25/2020, 05/28/2020 INFLUENZA VACCINE (#1) 2024 , 02/22/2022, 03/03/2021, Additional history exists Respiratory Syncytial Virus (RSV) Vaccine Pt: or [...] to complete this topic MENINGOCOCCAL (Group B) VACCINE SHARED DECISION-MAKING Aged Out No longer eligible based on patient's age to complete this topic MENINGOCOCCAL GROUPS A/C/Y/W VACCINE Aged Out No longer eligible based on patient's age to complete this topic Procedures Procedure Name Priority Date/Time Associated Diagnosis Comments FUNDUS PHOTO BOTH EYES Routine 02/12/2025 12:48 PM CDT Vitreous hemorrhage of left eye (HCC) RETINAL ANALYSIS OCT Routine 12/16/2024 8:33 AM CDT Acute hemorrhagic posterior vitreous detachment from Last 3 Months Results * FUNDUS PHOTO BOTH EYES (02/12/2025 12:48 PM CDT) Anatomical Region Laterality Modality Head External-Camera Photography Narrative 02/20/2025 9:21 AM CAREER TECHNOLOGY TEACHER Images from the original result were not included. OD OS: OS: VH, no tears Huong Duran MD OPHTHALMOLOGY SCHED ORD W PACS Final Result * RETINAL ANALYSIS OCT (12/16/2024 8:33 AM CDT) Anatomical Region Laterality Modality Head External-Camera Photography Narrative 12/20/2024 10:59 AM CDT Images from the original result were not included. OCT Macula 12/16/24 OD: PVD, otherwise normal retina cross section with preservation of fovea, clivus, and cellular lamina OS: PVD, resolving VH, otherwise normal retina cross section with preservation of fovea, clivus, and cellular lamina OD (top 8, bottom 12/16/24) OS (top 11/13/24, bottom 12/16/24) Huong Duran MD OPHTHALMOLOGY SCHED ORD W PACS Final Result from Last 3 Months Insurance [facility] Care Teams Instructor Bus Trolley And Taxi Relationship Specialty Start Date End Date Alma Villarreal MD [address] [place] [address] PCP - General Family Medicine 11/13/24
--- OUTSIDE RECORDS SUMMARY | 2025-03-03 23:10 | XMS_ITS | Encounter Summary ---
Author Organization [facility] Health Address [address] [facility] [place] [address] Care Team Providers Care Professor/Nurse Anesthetist Name Role Phone Alma Villarreal MD Primary Care Provider [phone] Encounter Details Date Type Department Care Team ([facility] [address] [facility] Contact Info) Description 11/13/2024 Ophth Exam [facility] [address] [place] [phone] Sylvia Reed MD [address] [place] [address] [place] [phone] Social History Tobacco Use Types Packs/Day Years [...] drinks on one occasion? 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 Gender Identity Not on file Sexual Orientation Not on file documented as of this encounter Plan of Treatment Upcoming Encounters Date Type Department Care Team ([facility] [address] Contact Info) Description 03/17/2025 11:00 AM ROD BENDING MACHINE OPERATOR Office Visit [facility] [address] [place] [phone] Huong Duran MD [address] [place] [address] [place] [phone] 06/21/2025 8:45 AM CDT Office Visit [facility] [address] [place] [phone] Huong Duran MD [address] [place] [address] [place] [phone] documented as of this encounter Visit Diagnoses Not on filedocumented in this encounter Care Teams Professor/Nurse Anesthetist Relationship Specialty Start Date End Date Alma Villarreal MD [address] [place] [address] PCP - General Family Medicine 11/13/24 documented as of this encounter
--- OUTSIDE RECORDS SUMMARY | 2025-03-03 23:10 | XMS_ITS | Encounter Summary ---
Author Organization [facility] Health Address [address] [facility] [place] [address] Care Team Providers Care Applications Architect Name Role Phone Guerrero Canchola MD Primary Care Provider [phone] Alma Villarreal MD Primary Care Provider [phone] Encounter Details Date Type Department Care Team (Late Contact Info) Description 10/25/2017 Lab Requisition [facility] [address] [place] [phone] Ruben Ramirez MD [address] [place] [address] Social History Tobacco Use Types Packs/Day Years Used Date Smoking Tobacco: Former Smokeless Tobacco: Never Alcohol Use Standard Drinks/Week Comments Yes 0 (1 standard drink = 0.6 oz pur e alcohol) Comments Unknown Sex and Gender Information Value Date Recorded Sex Assigned at Not on file Legal Sex Female 6:15 PM COTTAGE MASTER Gender Identity Not on file Sexual Orientation Not on file documented as of this encounter Plan of Treatment Upcoming Encounters Date Type Department Care Team (Late Contact Info) Description 03/17/2025 11:00 AM COTTAGE MASTER Office Visit [facility] [address] [place] [phone] Huong Duran MD [address] [place] [address] [place] [phone] 06/21/2025 8:45 AM CDT Office Visit [facility] [address] [place] [phone] Huong Duran MD [address] [place] [address] [place] [phone] documented as of this encounter Procedures Procedure Name Priority Date/Time Associated Diagnosis Comments DERMATOPATHOLOGY Routine 10/24/2017 12:0 0 AM CDT documented in this encounter Results * DERMATOPATHOLOGY (10/24/2017 12:00 AM CDT) Case Report Dermatopathology Report Case: [id number] Authorizing Provider: Ruben Ramirez MD Collected: 10/24/2017 12:00 AM Pathologist: Terri Camacho MD Received: 10/25/2017 12:57 PM Specimens: A) - Skin, right parietal scalp B) - Skin, left of midline superior scalp 8 12:28 PM CDT DERMATOPATHOLOGY LABORATORY Final Diagnosis Specimen A. SKIN, right parietal scalp: HYPERPLASTIC (HYPERTROPHIC) ACTINIC KERATOSIS (L57.0) Specimen B. SKIN, left of midline superior scalp: PIGMENTED SEBORRHEIC KERATOSIS (L82.1) 8 12:28 PM CDT DERMATOPATHOLOGY LABORATORY at 1228 CDT Clinical History A: R/O SCC. B: R/O ISK, SK, pigmented BCC. 8 12:28 PM CDT DERMATOPATHOLOGY LABORATORY Gross Description Specimen A: Received is one formalin filled container labeled with the patient's name and designated right parietal scalp. The specimen consists of a shave biopsy measuring [id number]. Jar 0. Specimen B: Received is one formalin filled container labeled with the patient's name and designated left of midline superior scalp. The specimen consists of a shave biopsy measuring [id number]. Jar 0. 8 12:28 PM CDT DERMATOPATHOLOGY LABORATORY Microscopic Description Specimen [...] present in the keratinocytes composing this tumor. 8 12:28 PM CDT DERMATOPATHOLOGY LABORATORY Disclaimer An external and internal positive and negative controls are appropriate for the histochemical, immunohistochemical and immunofluorescence stain(s) in this case (if any), except where stated explicitly. The performance characteristics of the stain(s) cited in this report were developed and its performance characteristic determined by the Dermatopathology Laboratory at [facility]. These tests need not be, and therefore are not, approved by the [place] Food and Drug Administration. The tests are used for clinical purposes. Billing Codes Specimen Charges Stain Charges 67912 36908 1 1 8 12:28 PM CDT DERMATOPATHOLOGY LABORATORY Embedded Images 12:28 PM CDT DERMATOPATHOLOGY LABORATORY Pathology/Cytology TISSUE SPECIMEN FROM SKIN / Unknown 10/24/2017 10/25/2017 12:57 PM CDT Miscellaneous samples (specimen) TISSUE SPECIMEN FROM SKIN / Unknown 10/24/2017 10/25/2017 12:57 PM CDT Ruben Ramirez MD LAB - PATHOLOGY/CYTOLOGY ORD ERABLES Final Result DERMATOPATHOLOGY LABORATORY [facility] - Department of Dermatology [address] [place] [address], 5th [place] [address], [facility] [[email or web address]] [phone] documented in this encounter Visit Diagnoses Not on filedocumented in this encounter Care Teams Applications Architect Relationship Specialty Start Date End Date Guerrero Canchola MD [address] [place] [address] PCP - General 08/21/12 11/12/24 Alma Villarreal MD [address] [place] [address] PCP - General Family Medicine 11/13/24 documented as of this encounter
--- OUTSIDE RECORDS SUMMARY | 2025-03-03 23:10 | XMS_ITS | Clinical Summary ---
Author Organization [facility] [address] Address [address] [place] [address] Care Team Providers Care Ironing Pleater Name Role Phone Alma Villarreal MD Primary Care Provider [phone] Allergies Active Allergy Reactions Criticality Noted Date Comments Penicillins Swelling Medium 06/14/2021 Social History Tobacco Use Types Packs/Day Years Used Date Smoking Tobacco: Never Assessed Personal Safety Answer Date Recorded Getting School Help Needed Not on file 06/27 Comments Unknown Sex and Gender Information Value Date Recorded Sex Assigned at Not on file Legal Sex Female 2:57 AM CESSPOOL CLEANER Gender Identity Not on file Sexual Orientation [...] Plan of Treatment Not on file Insurance [employer] Care Teams Ironing Pleater Relationship Specialty Start Date End Date Alma Villarreal MD PCP - General Family Medicine 05/23/21
--- OUTSIDE RECORDS SUMMARY | 2025-03-03 23:10 | XMS_ITS | Encounter Summary ---
Author Organization [facility] Health Address [address] [facility] [place] [address] Care Team Providers Care Health Record Technician Name Role Phone Guerrero Canchola MD Primary Care Provider Alma Villarreal MD Primary Care Provider [phone] Encounter Details Date Type Department Care Team (Late Contact Info) Description 07/26/2022 Lab Requisition [facility] [address] [place] [phone] Ruben Ramirez MD [address] [place] [address] Social History Tobacco Use Types Packs/Day Years Used Date Smoking Tobacco: Former Smokeless Tobacco: Never Alcohol Use Standard Drinks/Week Comments Yes 0 (1 standard drink = 0.6 oz pur e alcohol) Comments Unknown Sex and Gender Information Value Date Recorded Sex Assigned at Not on file Legal Sex Female 6:15 PM ELECTRICAL CONTRACTOR Gender Identity Not on file Sexual Orientation Not on file documented as of this encounter Plan of Treatment Upcoming Encounters Date Type Department Care Team (Late Contact Info) Description 03/17/2025 11:00 AM ELECTRICAL CONTRACTOR Office Visit [facility] [address] [place] [phone] Huong Duran MD [address] [place] [address] [place] [phone] 06/21/2025 8:45 AM CDT Office Visit [facility] [address] [place] [phone] Huong Duran MD [address] [place] [address] [place] [phone] documented as of this encounter Procedures Procedure Name Priority Date/Time Associated Diagnosis Comments DERMATOPATHOLOGY Routine 07/25/2022 12:0 0 AM CDT documented in this encounter Results * DERMATOPATHOLOGY (07/25/2022 12:00 AM CDT) Case Report Dermatopathology Report Case: [id number] Authorizing Provider: Ruben Ramirez MD Collected: 07/25/2022 12:00 AM Ordering Location: [facility] Received: 07/26/2022 12:02 PM Pathologist: [...] characteristic determined by the Dermatopathology Laboratory at [facility], directed by Dr. Luz Man. These tests need not be, and therefore are not, approved by the [place] Food and Drug Administration. The tests are used for clinical purposes. Billing Codes Specimen Charges Stain Charges 95583 1 3 12:22 PM CDT DERMATOPATHOLOGY LABORATORY Embedded Images 3 12:22 PM CDT DERMATOPATHOLOGY LABORATORY Pathology/Cytolog y TISSUE SPECIMEN FROM SKIN / Unknown 07/25/2022 07/26/2022 12:02 PM CDT Ruben Ramirez MD LAB - PATHOLOGY/CYTOLOGY ORD ERABLES Final Result DERMATOPATHOLOGY LABORATORY [facility] - Department of Dermatology [facility] Medicine [address] [place] [address] [phone] documented in this encounter Visit Diagnoses Not on filedocumented in this encounter Care Teams Health Record Technician Relationship Specialty Start Date End Date Guerrero Canchola MD [address] [place] [address] PCP - General 08/21/12 11/12/24 Alma Villarreal MD [address] [place] [address] PCP - General Family Medicine 11/13/24 documented as of this encounter
== END 2025-03-03 15:01 | disposition home or self-care (01) ==
LOC: ANHFOHIMG 15:01
PROVIDERS: PCP Student in an Organized Health Care Education/Training Program; Visit Provider Family Medicine
DX: Z12.31 Encounter for screening mammogram for malignant neoplasm of breast (principal)
CPT/HCPCS: 77063; 77067